=== PATIENT | male | born 1950 | race Caucasian/White ===

== ENCOUNTER 2023-03-02 12:41 | Emergency (ER) | payer MEDICARE, OTHER ==
[2023-03-02] MEDS ORDERED: Lidocaine 1% 10 ML MDV INJECT ONE (14:31)
== END 2023-03-02 15:04 | disposition home or self-care (01) ==
LOC: JD.ED 12:41
DX: S61.012A Laceration without foreign body of left thumb without damage to nail, initial encounter (principal); I11.0 Hypertensive heart disease with heart failure; I50.9 Heart failure, unspecified; K21.9 Gastro-esophageal reflux disease without esophagitis; E11.9 Type 2 diabetes mellitus without complications; Z79.899 Other long term (current) drug therapy; Z79.84 Long term (current) use of oral hypoglycemic drugs; W27.0XXA Contact with workbench tool, initial encounter
CPT/HCPCS: 12002; 99283; J3490

== ENCOUNTER 2024-04-11 08:15 | Day surgery (SDC) | payer MEDICARE, OTHER ==
[~2024-04-11 08:15] MED LIST: Sodium Chloride 0.9% 10 ML Syringe FLUSH PRN; Sodium Chloride 0.9% 10 ML Syringe FLUSH SCH
[2024-04-11] MEDS: Lactated Ringers 1,000 ML IV SCH (08:30)
[2024-04-11] MEDS ORDERED: Propofol 200 MG/20 ML SDV ONE ×2 (09:50→10:42)
[2024-04-11] MEDS ORDERED: Lidocaine 2% 5 ML SDV ONE (09:54)
[2024-04-11] MEDS ORDERED: fentaNYL 100 MCG/2 ML SDV IVPUSH PRN (10:13)
[2024-04-11] MEDS ORDERED: Ondansetron 4 MG/2 ML SDV IVPUSH PRN (10:13)
== END 2024-04-11 10:58 | disposition home or self-care (01) ==
LOC: JD.SDS 08:15
PROVIDERS: ATTEND Surgery
DX: Z12.11 Encounter for screening for malignant neoplasm of colon (principal); K57.30 Diverticulosis of large intestine without perforation or abscess without bleeding; I10 Essential (primary) hypertension; K21.9 Gastro-esophageal reflux disease without esophagitis; E78.00 Pure hypercholesterolemia, unspecified; E11.40 Type 2 diabetes mellitus with diabetic neuropathy, unspecified; F17.210 Nicotine dependence, cigarettes, uncomplicated; Z79.82 Long term (current) use of aspirin; Z79.84 Long term (current) use of oral hypoglycemic drugs; Z79.899 Other long term (current) drug therapy
CPT/HCPCS: 82947; 93005; G0121; J1596; J2704; J7120; J3490